=== PATIENT | male | born 1945 | race Asian ===

== ENCOUNTER 2016-09-30 06:34 | Day surgery (SDC) | payer MEDICARE, MEDICAID ==
[~2016-09-30] VITALS: Ht 160 cm; Wt 64.1 kg
[~2016-09-30 06:34] MED LIST: AMLO-512 PO; ATOR10TA84 PO; BUDE10.2 IH; MONT10TA21 PO; NAPR-58 PO; SODIUM CHLORIDE 0.9% 0 ML IV ONE; ZOLP10 PO
[2016-09-30] MEDS ORDERED: SODIUM CHLORIDE 0.9% 1,000 ML IV ONE ×2 (07:00→07:17)
[2016-09-30] MEDS ORDERED: MIDAZOLAM HCL 2 MG/2 ML VIAL ONE (07:13)
[2016-09-30] MEDS ORDERED: FentaNYL CITRATE-PF 100 MCG/2 ML VIAL ONE (07:13)
[2016-09-30] MEDS ORDERED: CELE200 PO (07:53)
[2016-09-30] MEDS ORDERED: METO-323 PO (07:53)
[2016-09-30] MEDS ORDERED: ASPI-1061 PO (07:53)
[2016-09-30] MEDS ORDERED: MethylPREDNISolone SOD SUCC 125 MG/2 ML VIAL IVP ONE (09:30)
[2016-09-30] MEDS ORDERED: MethylPREDNISolone SOD SUCC 125 MG/2 ML VIAL ONE (09:42)
[2016-09-30] MEDS ORDERED: LIDOCAINE HCL 4% 50 ML SOLUTION TP ONE (16:46)
[2016-09-30] MEDS ORDERED: ALBUTEROL SULFATE 2.5 MG/0.5 ML NEB SOLUTION NEB ONE (16:46)
[2016-09-30] MEDS ORDERED: LIDOCAINE HCL 2% 30 ML JELLY TP ONE (16:46)
[2016-09-30] MEDS ORDERED: BENZOCAINE 20% 50 MCG/SPRAY 57 GM TP ONE (16:46)
[2016-09-30] MEDS ORDERED: OXYGEN THERAPY IH SCH (20:00)
== END 2016-09-30 10:45 | disposition home or self-care (01) ==
LOC: SURGERY 06:34
PROVIDERS: ATTEND Internal Medicine Critical Care Medicine
DX: J39.8 Other specified diseases of upper respiratory tract (principal); B37.0 Candidal stomatitis; Z72.89 Other problems related to lifestyle; Z90.49 Acquired absence of other specified parts of digestive tract; Z98.890 Other specified postprocedural states
CPT/HCPCS: 31623; 31624; 71010; 87015 ×2; 87070; 87101; 87147; 87205; 87220; 88108; 88312; J2250; J2930; J3010; J7030

== ENCOUNTER 2023-05-19 06:27 | Day surgery (SDC) | payer OTHER ==
[~2023-05-19] VITALS: Ht 162.6 cm; Wt 65.9 kg
[~2023-05-19 06:27] MED LIST changes: +AMLO-258 PO; -AMLO-512 PO; +ASPI81TA87 PO; +ATOR10TA PO; -ATOR10TA84 PO; +CELE200 PO; +METO25XL PO; +MONT-35 PO; -MONT10TA21 PO; +NAPR-1025 PO; -NAPR-58 PO; -SODIUM CHLORIDE 0.9% 0 ML IV ONE; +ZOLP-162 PO; -ZOLP10 PO
[2023-05-19] MEDS ORDERED: SODIUM CHLORIDE 0.9% 1,000 ML ONE (07:04)
[2023-05-19 08:05] LABS: GLUCOMETER DEV NAME(LOC) SDS.; GLUCOSE,POINT OF CARE 153 MG/DL (70-110)
[2023-05-19] MEDS: SODIUM CHLORIDE 0.9% 1,000 ML IV ONE (08:12)
[2023-05-19] MEDS ORDERED: MIDAZOLAM HCL 2 MG/2 ML VIAL ONE (08:17)
[2023-05-19] MEDS ORDERED: FentaNYL CITRATE PF 100 MCG/2 ML VIAL ONE (08:17)
[2023-05-19 09:35] VITALS: PULSE 63; RESP 18; O2SAT 100
[2023-05-19] MEDS ORDERED: MethylPREDNISolone SOD SUCC 125 MG/2 ML VIAL ONE (10:16)
[2023-05-19] MEDS: MethylPREDNISolone SOD SUCC 125 MG/2 ML VIAL IVP ONE (10:18)
[2023-05-19] MEDS ORDERED: LIDOCAINE 4% 50 ML SOLUTION ONE (12:00)
[2023-05-19] MEDS ORDERED: LIDOCAINE 2% 11 ML JELLY ONE (12:00)
[2023-05-19] MEDS ORDERED: BENZOCAINE 20% 50 MCG/SPRAY 57 GM ONE (12:00)
== END 2023-05-19 12:30 | disposition home or self-care (01) ==
LOC: SURGERY 06:27
PROVIDERS: ATTEND Internal Medicine Critical Care Medicine
DX: R05.3 Chronic cough (principal); J98.09 Other diseases of bronchus, not elsewhere classified; J98.8 Other specified respiratory disorders; I10 Essential (primary) hypertension; E11.9 Type 2 diabetes mellitus without complications; B37.0 Candidal stomatitis; J38.4 Edema of larynx; Z79.899 Other long term (current) drug therapy; Z98.890 Other specified postprocedural states; Z98.49 Cataract extraction status, unspecified eye; Z79.82 Long term (current) use of aspirin
CPT/HCPCS: 31623; 82962; 87206; 87101; 87220; 87070; 88108; 88305; 31624; 71045; 87015; J3010; J2250; J2930; Q9967; J7030; Z7610

== ENCOUNTER 2024-12-24 06:28 | Day surgery (SDC) | payer OTHER ==
[~2024-12-24] VITALS: Ht 162.6 cm; Wt 61.3 kg
[~2024-12-24 06:28] MED LIST changes: -AMLO-258 PO; -CELE200 PO; -NAPR-1025 PO; +NAPR-1196 PO; -ZOLP-162 PO
[2024-12-24] MEDS ORDERED: SODIUM CHLORIDE 0.9% 1,000 ML ONE (06:43)
[2024-12-24] MEDS ORDERED: FentaNYL CITRATE PF 100 MCG/2 ML VIAL ONE (07:45)
[2024-12-24] MEDS ORDERED: MIDAZOLAM HCL 2 MG/2 ML VIAL ONE (07:46)
[2024-12-24] MEDS: SODIUM CHLORIDE 0.9% 1,000 ML IV ONE (08:38)
[2024-12-24 08:45] LABS: GLUCOMETER DEV NAME(LOC) SDS.; GLUCOSE,POINT OF CARE 157 MG/DL (70-110)
[2024-12-24 09:30] VITALS: PULSE 60; RESP 16; O2SAT 100
[2024-12-24] MEDS ORDERED: LIDOCAINE 2% 11 ML JELLY ONE (16:49)
[2024-12-24] MEDS ORDERED: LIDOCAINE 4% 50 ML SOLUTION ONE (16:49)
[2024-12-24] MEDS ORDERED: ALBUTEROL SULFATE 2.5 MG/0.5 ML NEB SOLUTION NEB ONE (16:49)
[2024-12-24] MEDS ORDERED: BENZOCAINE 20% 50 MCG/SPRAY 57 GM ONE (16:49)
== END 2024-12-24 14:35 | disposition left against medical advice (07) ==
LOC: SDS 06:28
PROVIDERS: ATTEND Internal Medicine Critical Care Medicine
DX: R05.3 Chronic cough (principal); R06.2 Wheezing; R04.2 Hemoptysis; R49.0 Dysphonia; R91.8 Other nonspecific abnormal finding of lung field; J38.4 Edema of larynx; B37.0 Candidal stomatitis
CPT/HCPCS: 31623; 82962; 87206; 87101; 87220; 87070; 88108; 87186; 31624; 71045; 87015; J3010; J2250; J2919; J7030; J7613; Z7610